=== PATIENT | female | born 1965 | race Hispanic/Latino ===

== ENCOUNTER → 2025-03-06 | Day surgery (SDC) | payer OTHER ==
[2025-03-03 16:17] LABS: ANION GAP 18.5 mmol/L (8-16); CALCIUM 9.9 mg/dL (8.4-10.2); CREATININE, SERUM 1.12 mg/dL (0.57-1.11); POTASSIUM 3.5 mmol/L (3.5-5.1)
[~2025-03-06] MED LIST: ACETAMINOPHEN 1000 MG/100 ML 100 ML IV ONE; AMLODIPINE BESYL5 MG PO; CEFTRIAXONE 1 GM VIAL ONE; DEXAMETHASONE SOD PHOS INJ 4 MG/ML SDV ONE; EPHEDRINE SULFATE INJ 50 MG/ML VIAL ONE; FENTANYL CITRATE/PF 100MCG/2 ML INJ ONE; HYDROCHLOROTH12.5 MG PO; LIDOCAINE HCL 2% LOCAL INJ 5 ML SDV VIAL INJ ONE; LISINOPRIL10 MG PO; METFORMIN HCL500 MG PO; ONDANSETRON HCL INJ 2MG/ML 2ML 2 MG/ML VIAL ONE; PHENYLEPHRINE HCL 1% 10 MG/ML VIAL ONE; PROPOFOL IV EMULSION 10 MG/ML 20 ML VIAL ONE; SEVOFLURANE INHAL SOLN 250 ML PEN BTL ONE; SODIUM CHLORIDE 0.9% INJ 10 ML VIAL ONE; VITAMIN D31250 MCG PO; VITAMIN E400 UNI1 PO
[2025-03-06] MEDS: LACTATED RINGER'S 1,000 ML ONE (06:38)
[2025-03-06 08:27] VITALS: TEMP 98.1
[2025-03-06 09:30] VITALS: BP 119/62; PULSE 79; RESP 16; O2SAT 97
== END | disposition home or self-care (01) ==
LOC: OR 05:54
PROVIDERS: ATTEND Urology
DX: N20.0 Calculus of kidney (principal); N28.1 Cyst of kidney, acquired; R35.1 Nocturia; I10 Essential (primary) hypertension; E11.9 Type 2 diabetes mellitus without complications; Z79.84 Long term (current) use of oral hypoglycemic drugs; F41.9 Anxiety disorder, unspecified; M06.9 Rheumatoid arthritis, unspecified; M19.91 Primary osteoarthritis, unspecified site; E66.9 Obesity, unspecified; Z01.812 Encounter for preprocedural laboratory examination; D64.9 Anemia, unspecified; Z01.810 Encounter for preprocedural cardiovascular examination; Z01.818 Encounter for other preprocedural examination
CPT/HCPCS: 36415; 50590; 74018; 80048; 82948; 93005; J0696; J1100; J2003; J2371; J2405

== ENCOUNTER → 2025-06-03 | Day surgery (SDC) | payer OTHER ==
[2025-06-02 11:05] LABS: BASOPHILS % 0.6 % (0.0-1.0); EOSINOPHILS % 4.0 % (0.0-6.0); LYMPHOCYTES % 26.8 % (18.0-39.1); MONOCYTES % 8.8 % (4.4-11.3); NEUTROPHILS % 59.0 % (38.7-80.0); RED CELL DISTRIBUTION WIDTH 12.6 % (11.7-14.4)
[2025-06-02 11:27] LABS: INR 0.97
[2025-06-02 11:33] LABS: EST GLOMERULAR FILTRATION RATE 84.0 ML/MIN (>=60)
[~2025-06-03] MED LIST changes: +AMOXICILLIN500 MG PO; +BUPIVACAINE 0.25% 30ML SDV ONE; +BUPIVACAINE LIPOSOME/PF 266 MG/20 ML IJ ONE; +CEFAZOLIN SODIUM 2 GM ONE; +GLYCOPYRROLATE INJ 0.2 MG/ML VIAL ONE; +HYDROCODON-ACE1 EA11 PO; +LACTATED RINGER'S 1,000 ML ONE; +MIDAZOLAM HCL 2 MG/2 ML VIAL ONE; +NEOSTIGMINE 1 MG/ML 10ML VIAL ONE; +ONDANSETRON HCL 4 MG ORAL DISINTEGRATING TAB ONE; -PHENYLEPHRINE HCL 1% 10 MG/ML VIAL ONE; +RAMIPRIL5 MG PO; +ROCURONIUM BROMIDE 1 ML IV ONE; -SODIUM CHLORIDE 0.9% INJ 10 ML VIAL ONE; +Vancomycin IV 1 GM VIAL ONE
[2025-06-03 11:31] VITALS: TEMP 97.6
[2025-06-03] MEDS: CEFTRIAXONE 1 GM VIAL IV ONE (12:45)
[2025-06-03 13:15] VITALS: BP 127/61; PULSE 74; RESP 18; O2SAT 97
== END | disposition home or self-care (01) ==
LOC: OR 05:53
PROVIDERS: ATTEND Behavior Technician
DX: S42.241A 4-part fracture of surgical neck of right humerus, initial encounter for closed fracture (principal); I10 Essential (primary) hypertension; E11.9 Type 2 diabetes mellitus without complications; E66.9 Obesity, unspecified; K76.0 Fatty (change of) liver, not elsewhere classified; M06.9 Rheumatoid arthritis, unspecified; M19.90 Unspecified osteoarthritis, unspecified site; W01.0XXA Fall on same level from slipping, tripping and stumbling without subsequent striking against object, initial encounter; Z01.810 Encounter for preprocedural cardiovascular examination; Z01.812 Encounter for preprocedural laboratory examination; Z01.818 Encounter for other preprocedural examination; Z79.1 Long term (current) use of non-steroidal anti-inflammatories (NSAID); Z79.84 Long term (current) use of oral hypoglycemic drugs; Z79.899 Other long term (current) drug therapy
CPT/HCPCS: 36415; 71046; 76000; 80048; 82948; 85025; 85610; 85730; 93005; C1769; C1776; J0666; J0696; J1100; J2003; J2250; J2405; J2710; J3373; Q0162